=== PATIENT | female | born 1975 | race Caucasian/White ===

== ENCOUNTER 2017-10-31 21:09 | Emergency (ER) | payer OTHER ==
--- NOTE | 2017-10-31 21:23 | EDPHY ---
H & P Stated Complaint: FELL HIT HEAD ON SAT NO LOC BUT NOW FOGGY AND HEADACHE Time Seen by Provider: 10/31/17 21:23 HPI/ROS: CHIEF COMPLAINT: Persistent headache and photophobia following head injury HISTORY OF PRESENT ILLNESS: The patient presents to the ED with complaints of a persistent occipital headache and photophobia following head injury that occurred on Saturday. The patient fell striking the back of her head. She developed a headache the following day. Since that time she has had an ongoing headache and photophobia. She has had some mild confusion and subjective cognitive dysfunction. The patient denies any neck pain. She denies any numbness or weakness in her arms or legs. She denies back pain, difficulty breathing or additional traumatic complaints. The patient denies significant past medical history. She is not anticoagulated. REVIEW OF SYSTEMS: A comprehensive 10 point review of systems is otherwise negative aside from elements mentioned in the history of present illness. Source: Patient Exam Limitations: No limitations - Personal History LMP (Females 10-55): 22-28 Days Ago Current Tetanus/Diphtheria Vaccine: Yes Current Tetanus Diphtheria and Acellular Pertussis (TDAP): Yes - Medical/Surgical History Hx Asthma: No Hx Chronic Respiratory Disease: No Hx Diabetes: No Hx Cardiac Disease: No Hx Renal Disease: No Hx Cirrhosis: No Hx Alcoholism: No Hx HIV/AIDS: No Hx Splenectomy or Spleen Trauma: No Other PMH: THYROID - Social History Smoking Status: Never smoked - Physical Exam Exam: General Appearance: Alert, no distress Head: Occipital tenderness to palpation Eyes: Pupils equal, round, reactive ENT, Mouth: No hemotympanum, no oral trauma Neck: Nontender, trachea midline Respiratory: No chest wall tender, no subcutaneous air, lungs clear bilaterally Cardiovascular: Regular rate and rhythm Abdomen: Abdomen is soft and nontender, pelvis stable Skin: No lacerations, No abrasion Back: No midline T/L/S pain Extremities: Nontender, full range of motion Neurological: A&Ox3, normal motor function, normal sensory exam Constitutional: Initial Vital Signs Temperature (C) 36.8 C 10/31/17 21:17 Heart Rate 61 10/31/17 21:17 Respiratory Rate 18 10/31/17 21:17 Blood Pressure 116/79 10/31/17 21:17 O2 Sat (%) 100 10/31/17 21:17 O2 Delivery Mode Room Air Allergies/Adverse Reactions: codeine Allergy (Verified 10/31/17 21:19) Home Medications: Medication Instructions Recorded Levothyroxine [Synthroid 125 mcg 125 mcg PO DAILY06 10/31/17 (*)] Medical Decision Making - Diagnostics Imaging Results: Imaging Impressions Head CT 10/31/17 21:26 Impression: 1. Tiny lateral and third ventricles may be normal for this patient or represent a secondary sign of cerebral edema. The exam is otherwise unremarkable and normal. Results called to Dr. Moore at 9:51 PM. General information for patients regarding this examination can be found at [email or web address]. If you have questions or comments about this report, please contact me at (hospital) or [phone] (cell). ED Course/Re-evaluation: The patient presents to the ED with complaints of a ongoing occipital headache and mild concussive symptoms following a head injury on Saturday. Given the persistence and severity of her headache a CT scan of the head was ordered to exclude for hemorrhage or fracture. CT scan demonstrates no evidence of intracranial hemorrhage or skull fracture. The patient does have small ventricles without evidence of increased ICP. The patient will be discharged home with customary concussion aftercare instructions. She is advised to use Tylenol and ibuprofen as needed for pain. The patient will be referred to our concussion specialist for any ongoing symptoms. Differential Diagnosis: Differential diagnosis considered includes intracranial hemorrhage, skull fracture, concussion Departure - Departure Disposition: Home, Routine, Self-Care Clinical Impression: Concussion Condition: Good Instructions: Concussion (ED) Additional Instructions: 1. Take Ibuprofen or Motrin 600 mg by mouth three times a day. 2. Tylenol 650 mg every 6 hr as needed for pain. 3. Concussion aftercare as recommended. 4. Please follow up with Dr. Delcid our concussion specialist for any ongoing symptoms past week. 5. Please return to the ED for markedly worsening symptoms, the development of any acute numbness or weakness, worsening headache or other concerns. Referrals: Mitali Delcid MD [Medical Doctor] - As per Instructions
[2017-10-31 22:22] VITALS: BP 108/69
== END 2017-10-31 22:25 | disposition home or self-care (01) ==
DX: S06.0X0A Concussion without loss of consciousness, initial encounter (principal); W01.198A Fall on same level from slipping, tripping and stumbling with subsequent striking against other object, initial encounter

== ENCOUNTER → 2018-01-10 | Outpatient (CLI) | payer OTHER | LOC: BMCIMAGING 14:45 | PROVIDERS: ATTEND Obstetrics & Gynecology | DX: Z12.31 Encounter for screening mammogram for malignant neoplasm of breast (principal) ==